=== PATIENT | male | born 1985 | race Caucasian/White ===

== ENCOUNTER → 2017-09-05 | Outpatient (REF) ==
[~2017-09-05] MED LIST: METH4TAB PO; SULF1TAB38 PO
--- NOTE | 2017-09-05 09:39 | Diagnostic Imaging Report ---
Clinical indication: Patient with hyperextended left elbow while catching scaffold at work. Exam: X-ray of the left elbow, 3 views. Comparison: None. FINDINGS: There is no evidence of acute fracture or dislocation. There is no elbow effusion. There is no significant bone or joint abnormality. IMPRESSION: Unremarkable x-ray of the left elbow. There is no elbow effusion. Dictated by: Dictated on workstation # [id number]
== END | disposition home or self-care (01) ==
LOC: OCC 08:56
PROVIDERS: ATTEND Nurse Practitioner Family
CPT/HCPCS: 73080